=== PATIENT | male | born 1960 | race Caucasian/White ===

== ENCOUNTER 2017-04-26 11:17 | Day surgery (SDC) | payer OTHER ==
[~2017-04-26] VITALS: Ht 185.4 cm; Wt 100.0 kg
[2017-04-26] VITALS (13 sets, daily range): BP systolic 101–151; BP diastolic 59–88; PULSE 52–88; TEMP 97.7
[~2017-04-26 11:17] MED LIST: ACIPHEX20 MG PO; COUMADIN 2MG2 MG/TAB PO; ENTOCORT EC3 MG PO; MULTAQ400 MG PO; PENTASA250 MG PO; PREDNISONE20 MG PO; TOPROL XL100 MG PO; TOPROL XL25 MG PO
[2017-04-26 12:10] LABS: HEMATOCRIT 42.1 % (42.0-52.0); HEMOGLOBIN 14.5 g/dl (13.5-18.0); MEAN CELL VOLUME 85 fl (80.0-100.0); MEAN CORPUSCULAR HEMOGLOBIN 29 pg (27.0-31.0); MEAN CORPUSCULAR HGB CONC 34 g/dl (33.0-37.0); MEAN PLATELET VOLUME 9.4 fl (7.4-10.4); PLATELET COUNT 253 K/mm3 (130-400); RED BLOOD COUNT 4.95 M/mm3 (4.20-5.60); REDCELL DISTRIBUTION WIDTH-CV 12.7 % (11.5-14.5); WHITE BLOOD COUNT 6.4 K/mm3 (4.8-10.8)
[2017-04-26 12:16] LABS: INR 1.1 (0.8-3.0); PROTHROMBIN TIME 12.1 SECONDS (9.7-12.8)
[2017-04-26 12:24] LABS: CALCIUM 8.6 mg/dL (8.4-10.2); CREATININE, serum 1.12 mg/dL (0.66-1.25)
[2017-04-26] MEDS ORDERED: ELIQUIS 5MG PO (12:37)
[2017-04-26] MEDS ORDERED: ASPIRIN 81M81 MG/TA2 PO (12:37)
[2017-04-26] MEDS ORDERED: OMEGA-3 1000 MG1 CAP PO (12:38)
[2017-04-26] MEDS ORDERED: MULTIPLE VITAMI1 CAP PO (12:38)
== END 2017-04-26 14:19 | disposition home or self-care (01) ==
LOC: COL.CAR 11:17
PROVIDERS: Internal Medicine Cardiovascular Disease
DX: I48.0 Paroxysmal atrial fibrillation (principal); I10 Essential (primary) hypertension; D64.9 Anemia, unspecified; K50.90 Crohn's disease, unspecified, without complications; Z81.8 Family history of other mental and behavioral disorders; Z82.49 Family history of ischemic heart disease and other diseases of the circulatory system; Z79.01 Long term (current) use of anticoagulants
CPT/HCPCS: J2250; J3010; J7030

== ENCOUNTER 2020-12-21 07:13 | Day surgery (SDC) | payer OTHER ==
[2020-12-21] VITALS (7 sets, daily range): BP systolic 102–129; BP diastolic 60–84; PULSE 59–74; TEMP 98
[~2020-12-21] VITALS: Ht 185.5 cm; Wt 86.0 kg
[~2020-12-21 07:13] MED LIST changes: +ASPIRIN 81M81 MG/TA2 PO; +ELIQUIS 5MG PO; +EPA FISH OIL1 SGL PO; +MULTIPLE VITAMI1 CAP PO
[2020-12-21] MEDS ORDERED: LUTEIN20 M1 PO (08:42)
[2020-12-21] MEDS ORDERED: NATURAL E400 IU PO (08:43)
[2020-12-21] MEDS ORDERED: TURMERIC500 MG PO (08:43)
[2020-12-21] MEDS ORDERED: MASON NATURAL500 MG PO (08:44)
[2020-12-21] MEDS ORDERED: GINKGO60 MG PO (08:44)
[2020-12-21] MEDS ORDERED: [UNRECOGNIZED DRUG - OTHER] PO (08:47)
[2020-12-21] MEDS ORDERED: [UNRECOGNIZED DRUG - OTHER] PO (08:48)
[2020-12-21 08:53] LABS: HEMOGLOBIN 10.5 g/dl (13.5-18.0); MEAN CELL VOLUME 81 fl (80.0-100.0); MEAN CORPUSCULAR HEMOGLOBIN 25 pg (27.0-31.0); MEAN CORPUSCULAR HGB CONC 31 g/dl (33.0-37.0); MEAN PLATELET VOLUME 9.2 fl (7.4-10.4); PLATELET COUNT 359 K/mm3 (130-400); RED BLOOD COUNT 4.18 M/mm3 (4.20-5.60)
[2020-12-21 09:02] LABS: INR 1.4 (0.8-3.0); PROTHROMBIN TIME 15.6 SECONDS (9.7-12.8)
[2020-12-21 09:05] LABS: CALCIUM 8.8 mg/dL (8.4-10.2); CREATININE, serum 1.17 (0.66-1.25); POTASSIUM 4.4 mmol/L (3.4-5.0)
[2020-12-21 09:05] LABS: PARTIAL THROMBOPLASTIN TIME 34.2 SECONDS (26.0-37.0)
[2020-12-21 09:35] LABS: THYROID STIMULATING HORMONE 1.09 uIU/mL (0.465-4.680)
[2020-12-21 09:45] LABS: MAGNESIUM 2.3 mg/dL (1.6-2.3)
--- NOTE | 2020-12-21 09:52 | NUR ---
Report from Suzi Clemente.
[2020-12-21] MEDS ORDERED: TAMBOCOR50 MG PO (09:58)
[2020-12-21] MEDS ORDERED: TOPROL XL 25MG25 MG PO (09:59)
--- NOTE | 2020-12-21 11:15 | NUR ---
Discharge instructions given to pt.pt verbalizes understanding.INT removed,catheter tip intact.Pt escorted out via wheelchair by this nurse.
== END 2020-12-21 12:30 | disposition home or self-care (01) ==
LOC: COL.CAR 07:13
PROVIDERS: Internal Medicine Adult Congenital Heart Disease
DX: I48.19 Other persistent atrial fibrillation (principal); I48.0 Paroxysmal atrial fibrillation; I10 Essential (primary) hypertension; K21.9 Gastro-esophageal reflux disease without esophagitis; D64.9 Anemia, unspecified; K50.90 Crohn's disease, unspecified, without complications; D63.8 Anemia in other chronic diseases classified elsewhere; Z79.01 Long term (current) use of anticoagulants; Z79.899 Other long term (current) drug therapy
CPT/HCPCS: J2704; J7120

== ENCOUNTER 2021-04-25 08:04 | Day surgery (SDC) | payer OTHER ==
[~2021-04-25] VITALS: Ht 185.4 cm; Wt 91.1 kg
[~2021-04-25 08:04] MED LIST changes: +GINKGO60 MG PO; +LUTEIN20 M1 PO; +MASON NATURAL500 MG PO; +NATURAL E400 IU PO; +TAMBOCOR50 MG PO; +TOPROL XL 25MG25 MG PO; +TURMERIC500 MG PO; +[UNRECOGNIZED DRUG - OTHER] PO; +[UNRECOGNIZED DRUG - OTHER] PO
[2021-04-25] MEDS ORDERED: TAMBOCOR50 MG PO (08:41)
[2021-04-25] MEDS ORDERED: TOPROL XL 25MG25 MG PO (08:42)
[2021-04-25 08:43] VITALS: BP 133/101; PULSE 70; TEMP 97.9
[2021-04-25 08:44] LABS: HEMATOCRIT 41.4 % (42.0-52.0); HEMOGLOBIN 14.2 g/dl (13.5-18.0); MEAN CELL VOLUME 83 fl (80.0-100.0); MEAN CORPUSCULAR HEMOGLOBIN 29 pg (27.0-31.0); MEAN CORPUSCULAR HGB CONC 34 g/dl (33.0-37.0); PLATELET COUNT 250 K/mm3 (130-400); RED BLOOD COUNT 4.98 M/mm3 (4.20-5.60); REDCELL DISTRIBUTION WIDTH-CV 14.7 % (11.5-14.5)
[2021-04-25 08:52] LABS: INR 1.2 (0.8-3.0); PROTHROMBIN TIME 13.7 SECONDS (9.7-12.8)
[2021-04-25 08:55] LABS: PARTIAL THROMBOPLASTIN TIME 37.7 SECONDS (26.0-37.0)
[2021-04-25 09:00] LABS: CALCIUM 8.9 mg/dL (8.4-10.2); CREATININE, serum 1.32 mg/dL (0.72-1.25); MAGNESIUM 2.2 mg/dL (1.6-2.6); POTASSIUM 4.6 mmol/L (3.5-4.5)
[2021-04-25] MEDS ORDERED: ELIQUIS 5MG PO (09:13)
[2021-04-25 09:20] LABS: THYROID STIMULATING HORMONE 2.129 uIU/mL (0.350-4.940)
[2021-04-25 09:25] VITALS: BP 100/74; PULSE 59; TEMP 97.9
--- NOTE | 2021-04-25 09:25 | NUR ---
Report from David WILSON. Pt resting in bed. Denies pain and needs at this time. VSS. Spouse bedside
[2021-04-25 09:40] VITALS: BP 106/71; PULSE 60; TEMP 97.9
[2021-04-25 09:55] VITALS: BP 103/75; PULSE 62; TEMP 97.9
[2021-04-25 10:10] VITALS: BP 102/74; PULSE 58; TEMP 97.9
--- NOTE | 2021-04-25 10:24 | NUR ---
INT discontinued intact. VSS. Villanueva RT in to do ECG post Cardioversion
[2021-04-25 10:30] VITALS: BP 105/68; PULSE 60; TEMP 97.9
--- NOTE | 2021-04-25 10:30 | NUR ---
Discharge instructions given. Transferred to private car by loraine
== END 2021-04-25 10:30 | disposition home or self-care (01) ==
LOC: COL.CAR 08:04
PROVIDERS: Internal Medicine Cardiovascular Disease
DX: I48.19 Other persistent atrial fibrillation (principal); I10 Essential (primary) hypertension; T46.2X6A Underdosing of other antidysrhythmic drugs, initial encounter; Z91.128 Patient's intentional underdosing of medication regimen for other reason; Z79.899 Other long term (current) drug therapy; Z79.01 Long term (current) use of anticoagulants
CPT/HCPCS: J2704; J7120

== ENCOUNTER 2021-07-05 08:15 | Day surgery (SDC) | payer OTHER ==
[~2021-07-05] VITALS: Ht 185.5 cm; Wt 92.2 kg
[2021-07-05] MEDS ORDERED: ELIQUIS 5MG PO (08:52)
[2021-07-05] MEDS ORDERED: MULTI VITAMINS1 TAB PO (08:55)
[2021-07-05] MEDS ORDERED: EPA FISH OIL1 SGL PO (08:55)
[2021-07-05 08:56] VITALS: BP 140/96; PULSE 58; PULSE 81; TEMP 97.8
[2021-07-05] MEDS ORDERED: CINNAMON500 MG PO (08:56)
[2021-07-05 08:57] LABS: HEMATOCRIT 37.3 % (42.0-52.0); HEMOGLOBIN 12.8 g/dl (13.5-18.0); MEAN CELL VOLUME 86 fl (80.0-100.0); MEAN CORPUSCULAR HEMOGLOBIN 30 pg (27-31); MEAN CORPUSCULAR HGB CONC 34 g/dl (33.0-37.0); MEAN PLATELET VOLUME 9.3 fl (7.4-10.4); PLATELET COUNT 301 K/mm3 (130-400); RED BLOOD COUNT 4.32 M/mm3 (4.20-5.60); REDCELL DISTRIBUTION WIDTH-CV 12.9 % (11.5-14.5)
[2021-07-05 09:03] LABS: INR 1.2 (0.8-3.0); PROTHROMBIN TIME 12.8 SECONDS (9.7-12.8)
[2021-07-05 09:05] LABS: PARTIAL THROMBOPLASTIN TIME 34.4 SECONDS (26.0-37.0)
[2021-07-05 09:14] LABS: CALCIUM 8.3 mg/dL (8.4-10.2); CREATININE, serum 1.16 mg/dL (0.72-1.25); MAGNESIUM 2.4 mg/dL (1.6-2.6); POTASSIUM 4.5 mmol/L (3.5-4.5)
[2021-07-05 09:36] LABS: THYROID STIMULATING HORMONE 2.352 uIU/mL (0.350-4.940)
[2021-07-05 09:45] VITALS: BP 102/71; PULSE 56
--- NOTE | 2021-07-05 09:45 | NUR ---
BS report from David WILSON. pt doing well post cardioversion. pt is in sinus tashia rate 50's on monitor. pt resting comfortably on stretcher, awake and alert, pwd with reg and unlabored respirations. at bs. call light in reach.
[2021-07-05 09:50] VITALS: BP 109/72; PULSE 58
[2021-07-05] MEDS ORDERED: TOPROL XL 25MG25 MG PO (09:50)
[2021-07-05] MEDS ORDERED: TAMBOCOR 1100 MG/TAB PO (09:50)
[2021-07-05 10:00] VITALS: BP 109/70; PULSE 56
[2021-07-05 10:15] VITALS: BP 118/78; PULSE 60
--- NOTE | 2021-07-05 10:17 | NUR ---
repeat EKG obtained. I have reviewed dc/rx and fu instructions with pt and who verbalize understanding.
--- NOTE | 2021-07-05 10:30 | NUR ---
Pt has been up and is steady on his feet. IV dc'd with cath intact, dressing applied. Pt to exit via wheelchair.
== END 2021-07-05 20:03 | disposition home or self-care (01) ==
LOC: COL.CAR 08:15
PROVIDERS: Internal Medicine Cardiovascular Disease
DX: I48.0 Paroxysmal atrial fibrillation (principal); K21.9 Gastro-esophageal reflux disease without esophagitis; I10 Essential (primary) hypertension; D64.9 Anemia, unspecified; K50.90 Crohn's disease, unspecified, without complications; E72.51 Non-ketotic hyperglycinemia; Z79.01 Long term (current) use of anticoagulants; Z79.899 Other long term (current) drug therapy
CPT/HCPCS: J2704

== ENCOUNTER 2021-12-28 11:36 | Emergency (ER) | payer SELFPAY ==
[~2021-12-28] VITALS: Ht 185.4 cm; Wt 93.2 kg
[~2021-12-28 11:36] MED LIST changes: +CINNAMON500 MG PO; +MULTI VITAMINS1 TAB PO; +TAMBOCOR 1100 MG/TAB PO
[2021-12-28 11:41] VITALS: TEMP 98.7
[2021-12-28] MEDS ORDERED: CEPHALEXIN500 M1 PO (13:07)
[2021-12-28 13:22] VITALS: BP 167/91; PULSE 52
== END 2021-12-28 13:22 | disposition home or self-care (01) ==
LOC: COL.ER 11:36
DX: S61.211A Laceration without foreign body of left index finger without damage to nail, initial encounter (principal); S61.412A Laceration without foreign body of left hand, initial encounter; Z79.01 Long term (current) use of anticoagulants; Z23 Encounter for immunization; W29.3XXA Contact with powered garden and outdoor hand tools and machinery, initial encounter

== ENCOUNTER → 2022-01-12 | Outpatient (CLI) | payer SELFPAY ==
[~2022-01-12] MED LIST changes: +CEPHALEXIN500 M1 PO
[2022-01-12 09:03] VITALS: BP 153/83; PULSE 59; TEMP 97.8
== END ==
LOC: COL.ER 08:55
DX: Z48.02 Encounter for removal of sutures (principal)